=== PATIENT | female | born 1990 | race Caucasian/White ===

== ENCOUNTER 2018-01-16 09:33 | Inpatient (IN) | payer OTHER ==
[2018-01-16] MEDS ORDERED: BUTORPHANOL 2 MG INJ IV ×2 (10:00→10:30)
[2018-01-16] MEDS ORDERED: CARBOPROST 250 MCG INJ IM ×2 (10:00→10:30)
[2018-01-16] MEDS ORDERED: LACTATED RINGER'S 1,000 ML IV* (10:00)
[2018-01-16] MEDS ORDERED: LIDOCAINE 1% (MPF) 30 ML INJ INJ ×2 (10:00→10:30)
[2018-01-16] MEDS ORDERED: IBUPROFEN 600 MG TAB PO ×2 (10:00→10:30)
[2018-01-16] MEDS ORDERED: MISOPROSTOL 200 MCG TAB PR ×2 (10:00→10:30)
[2018-01-16] MEDS ORDERED: OXYTOCIN 30 UNITS/LR 500 ML IV ×4 (10:00→10:30)
[2018-01-16] MEDS ORDERED: METHYLERGONOVINE 0.2 MG INJ IM ×2 (10:00→10:30)
[2018-01-16] MEDS: LACTATED RINGER'S 1,000 ML IV* ×2 (10:45→18:31)
[2018-01-16 10:50] LABS: ADD MAN DIFF? NO
[2018-01-16 10:53] LABS: BASOPHILS % 0.5 % (0.0-2.0); EOSINOPHILS # 1.5 10^3/ul (0.0-0.5); EOSINOPHILS % 18.1 % (0.0-7.0); HEMATOCRIT 34.6 % (37.0-47.0); HEMOGLOBIN 11.6 g/dl (12.0-16.0); LYMPHOCYTES % 24.8 % (15.0-51.0); MEAN CORPUSCULAR HEMOGLOBIN 30.1 pg (29.0-33.0); MEAN CORPUSCULAR HGB CONC 33.5 g/dl (32.0-37.0); MEAN CORPUSCULAR VOLUME 89.6 fl (82.0-101.0); MEAN PLATELET VOLUME 10.7 fl (7.4-10.4); MONOCYTE # 0.8 10^3/ul (0.3-0.9); MONOCYTES % 9.2 % (0.0-11.0); NEUTROPHIL # 3.9 10^3/ul (1.6-7.5); NEUTROPHILS % 47.2 % (39.0-77.0); PLATELET COUNT 165 10^3/UL (140-415); RED BLOOD COUNT 3.86 10^6/ul (4.20-5.40); RED CELL DISTRIBUTION WIDTH 13.6 % (11.5-14.5)
[2018-01-16 10:53] LABS: WHITE BLOOD COUNT 8.2 10^3/ul (4.8-10.8)
[2018-01-16 11:12] LABS: INR 0.92; PROTIME 12.4 Sec (11.9-14.9)
[2018-01-16 11:13] LABS: PARTIAL THROMBOPLASTIN TIME 27.1 Sec (25.0-35.0)
[2018-01-16] MEDS: OXYTOCIN 30 UNITS/LR 500 ML IV (12:39)
[2018-01-16] MEDS: DINOPROSTONE 10 MG VAG SUPP VAG (16:06)
[2018-01-16 19:36] LABS: RAPID PLASMA REAGIN NONREACTIVE (NR)
[2018-01-17] MEDS: LACTATED RINGER'S 1,000 ML IV* ×4 (02:03→22:33)
[2018-01-17] MEDS ORDERED: FENTAnyl 2MCG/ML-ROPIV 0.2% 100 ML (02:24)
[2018-01-17] MEDS ORDERED: ONDANSETRON 4 MG INJ IV (02:30)
[2018-01-17] MEDS ORDERED: NALOXONE (0.4 MG/ML) INJ IV (02:30)
[2018-01-17] MEDS ORDERED: DIPHENHYDRAMINE 50 MG INJ IV (02:30)
[2018-01-17] MEDS: FENTAnyl 2MCG/ML-ROPIV 0.2% 100 ML BAG EPI ×2 (09:54→16:36)
[2018-01-17] MEDS: OXYTOCIN 30 UNITS/LR 500 ML IV ×2 (19:21→19:22)
[2018-01-17] MEDS: MINERAL OIL LIGHT 10 ML VIAL TOP (19:21)
[2018-01-17] MEDS: SENNA/DOCUSATE NA (8.6MG/50MG) TAB PO (22:56)
[2018-01-17] MEDS: HYDROCODONE/APAP (5/325) TAB PO (22:56)
[2018-01-17] MEDS: MAGNESIUM HYDROXIDE 30ML CUP PO (22:56)
[2018-01-17] MEDS ORDERED: LANOLIN 7 GM TUBE TOP (23:00)
[2018-01-17] MEDS ORDERED: WITCH HAZEL/GLYCERIN PAD PR (23:00)
[2018-01-17] MEDS ORDERED: METHYLERGONOVINE 0.2 MG INJ IM (23:00)
[2018-01-17] MEDS ORDERED: OXYTOCIN 30 UNITS/LR 500 ML IV (23:00)
[2018-01-17] MEDS ORDERED: MISOPROSTOL 200 MCG TAB PR (23:00)
[2018-01-17] MEDS ORDERED: BENZOCAINE 20% 56 ML SPRAY TOP (23:00)
[2018-01-17] MEDS ORDERED: ZOLPIDEM 5 MG TAB PO (23:00)
[2018-01-17] MEDS ORDERED: CARBOPROST 250 MCG INJ IM (23:00)
[2018-01-17] MEDS ORDERED: DIBUCAINE 1% 30 GM OINT PR (23:00)
[2018-01-18] MEDS: CEPHALEXIN 500 MG CAP PO ×5 (00:22→23:17)
[2018-01-18] MEDS: IBUPROFEN 600 MG TAB PO ×5 (00:23→23:17)
[2018-01-18] MEDS: LACTATED RINGER'S 1,000 ML IV* (06:33)
[2018-01-18 06:40] LABS: ADD MAN DIFF? NO
[2018-01-18 06:49] LABS: WHITE BLOOD COUNT 13.4 10^3/ul (4.8-10.8)
[2018-01-18 06:49] LABS: BASOPHIL # 0.1 10^3/ul (0.0-0.1); BASOPHILS % 0.4 % (0.0-2.0); EOSINOPHILS % 7.3 % (0.0-7.0); HEMATOCRIT 32.7 % (37.0-47.0); LYMPHOCYTES # 2.9 10^3/ul (0.8-2.9); LYMPHOCYTES % 21.9 % (15.0-51.0); MEAN CORPUSCULAR HEMOGLOBIN 30.3 pg (29.0-33.0); MEAN CORPUSCULAR HGB CONC 33.6 g/dl (32.0-37.0); MEAN CORPUSCULAR VOLUME 90.1 fl (82.0-101.0); MEAN PLATELET VOLUME 11.2 fl (7.4-10.4); MONOCYTE # 1.1 10^3/ul (0.3-0.9); MONOCYTES % 8.1 % (0.0-11.0); NEUTROPHIL # 8.3 10^3/ul (1.6-7.5); PLATELET COUNT 152 10^3/UL (140-415); RED BLOOD COUNT 3.63 10^6/ul (4.20-5.40); RED CELL DISTRIBUTION WIDTH 13.7 % (11.5-14.5)
[2018-01-18] MEDS: SENNA/DOCUSATE NA (8.6MG/50MG) TAB PO ×2 (09:10→21:03)
[2018-01-18] MEDS: MAGNESIUM HYDROXIDE 30ML CUP PO ×2 (09:10→21:03)
[2018-01-18] MEDS: HYDROCODONE/APAP (5/325) TAB PO ×2 (09:10→09:11)
[2018-01-19] MEDS: IBUPROFEN 600 MG TAB PO ×2 (05:11→11:42)
[2018-01-19] MEDS: CEPHALEXIN 500 MG CAP PO ×2 (05:11→11:42)
[2018-01-19] MEDS: DIPHTH/TET/ACEL PERTUSS (ADULT) 0.5 ML VIAL IM* (07:58)
[2018-01-19] MEDS: MEASLES,MUMPS,RUBELLA VACCINE INJ SC* (07:59)
[2018-01-19] MEDS: VARICELLA VACCINE LIVE/PF 1,350 UNIT/0.5 ML ML SC* (07:59)
[2018-01-19] MEDS: SENNA/DOCUSATE NA (8.6MG/50MG) TAB PO (08:24)
[2018-01-19] MEDS: MAGNESIUM HYDROXIDE 30ML CUP PO (08:24)
== END 2018-01-19 13:35 | disposition home or self-care (01) | DRG 775 ==
LOC: L-D 09:33 → PP1 01-17 21:04
PROVIDERS: Obstetrics & Gynecology
PROC: 3E0P7VZ Introduction of Hormone into Female Reproductive, Via Natural or Artificial Opening (ICD-10-PCS; 2018-01-16 09:00)
DX: O70.9 Perineal laceration during delivery, unspecified (principal); Z37.0 Single live birth; Z3A.39 39 weeks gestation of pregnancy
CPT/HCPCS: 62319; 76815; 85025; 85610; 85730; 86592; 86850; 86900; 86901